=== PATIENT | female | born 1960 | race Caucasian/White ===

== ENCOUNTER 2025-07-27 15:40 | Outpatient (OUT) | payer MEDICARE, SELFPAY ==
--- NOTE | 2025-07-27 16:09 | MM_ITS ---
Patient Name: KAYE SHEETS MR#: [id number] : 1960 Exam Date: 07/27/2025 Ordering Doctor: [facility] REPORT PROCEDURE: MM TOMOSYNTHESIS SCREENING BI COMPARISON: None. INDICATIONS: Screening mammogram Calculator Name NCI Breast Cancer Risk Assessment Tool 5 Year Breast Cancer Risk 1.20% Lifetime Breast Cancer Risk 5.30% Personal Breast Cancer No Personal Ovarian Cancer No Treatments None Family Cancers None LOCATION: [facility] BREAST COMPOSITION: The breasts are almost entirely fatty. FINDINGS: RIGHT BREAST: No significant suspicious finding. LEFT BREAST: No significant suspicious finding. DIAGNOSTIC CATEGORY 1--NEGATIVE. RECOMMENDATIONS: ROUTINE MAMMOGRAM AND CLINICAL EVALUATION IN 12 MONTHS. Dictated by: Andrew Warren MD on 07/29/2025 at 09:38 Approved by: Andrew Warren MD on 07/29/2025 at 09:40
== END 2025-07-27 15:41 | disposition home or self-care (01) ==
PROVIDERS: Visit Provider Nurse Practitioner Family
DX: Z12.31 Encounter for screening mammogram for malignant neoplasm of breast (principal)
CPT/HCPCS: 77063; 77067